=== PATIENT | male | born 1985 | race Caucasian/White ===

== ENCOUNTER 2017-05-07 20:39 | Emergency (ER) | payer MEDICAID, OTHER ==
[~2017-05-07] VITALS: Ht 175.3 cm; Wt 78.9 kg
[2017-05-07 20:54] VITALS: Ht 175.3 cm; Wt 78.9 kg
[2017-05-07] MEDS ORDERED: KETOROLAC 60 MG INJ IM STA (22:42)
--- NOTE | 2017-05-07 23:05 | RADRPT ---
PROCEDURE: Ultrasound soft tissue CLINICAL INDICATION: Right suprapubic/groin rule out hernia TECHNIQUE: Ultrasound of the right groin region was performed. COMPARISON: None available FINDINGS: No right inguinal region hernia is seen. No mass or fluid collection is seen. No lymph node is seen. IMPRESSION: No sonographic evidence of right inguinal region hernia seen. RPTAT: HJES .Johnson Hubbard MD, MD Date Time Electronically viewed and signed by .Johnson Hubbard MD, on 05/07/2017 23:04 .S/
--- NOTE | 2017-05-07 23:44 | ERD ---
ER Documentation Chief Complaint Chief Complaint Rt groin pain x2 wks, worse today. HPI 32-year-old male, previously healthy, presents to the emergency department complaining of progressive right groin pain for approximately 2 weeks. The pain is intermittent, sharp, 7/10 worse by deep palpation the patient has not tried any medications at this time. Denies any recent trauma. Denies urinary symptoms, no abdominal pain, no fever, no chills, no diarrhea, no vomiting. ROS SYSTEMIC symptoms: no fever, chills, no night sweats, no weight loss EYE symptoms: No blurred vision, no eye discharge OTOLARYNGEAL symptoms: No hearing loss. No ear pain, no sore throat CARDIOVASCULAR symptoms: No chest pain or discomfort, no palpitations. PULMONARY symptoms: No dyspnea, no cough, no wheezing. GASTROINTESTINAL symptoms: No abdominal pain, no nausea, no vomiting, no diarrhea MUSCULOSKELETAL symptoms: No arthralgias, no muscle aches. NEUROLOGY symptoms: No confusion, no syncope, no numbness or tingling. SKIN: No rashes Medications Home Meds Active Scripts Ibuprofen* (Motrin*) 400 Mg Tab, 400 MG PO Q8, #30 TAB Prov:LINDEN TAVERAS MD 05/07/17 Hydrocodone/Acetaminophen ([place] 5-325 Tablet) 1 Each Tablet, 1 TAB PO Q6H Y for PAIN, #12 TAB Prov:LINDEN TAVERAS MD 05/07/17 Allergies Allergies: Coded Allergies: No Known Allergy (Unverified , 05/07/17) PMhx/Soc Medical and Surgical Hx: pt denies Medical Hx, pt denies Surgical Hx Hx Alcohol Use: Yes Hx Substance Use: No Hx Tobacco Use: Yes Smoking Status: Current some day smoker Physical Exam Vitals Vital Signs Date Time Temp Pulse Resp B/P Pulse Ox O2 Delivery O2 Flow Rate FiO2 05/07/17 20:54 97.8 71 18 126/88 99 Physical Exam Patient is in no acute distress, vital signs stable. Alert and fully oriented. EYES: PERRLA, EOMI, Sclera and conjunctiva appear normal. EARS: Canals clear, tympanic membranes WNL THROAT: Normal oropharynx. NECK: Supple, No lymphadenopathy. Full ROM without pain or tenderness. HEART: RRR, no rubs, murmurs, clicks or gallops. LUNGS: Clear to auscultation. ABDOMEN: Soft, non-tender without masses or hepatosplenomegaly. No palpable hernia. EXTREMITIES: No edema bilaterally. BACK: Full ROM, no deformity, normal back exam NEURO: Cranial nerves grossly intact, no motor or sensory deficit Results 24 hrs Laboratory Tests Test 05/07/17 23:48 Bedside Urine pH (LAB) 6.0 Bedside Urine Protein (LAB) Negative Bedside Urine Glucose (UA) Negative Bedside Urine Ketones (LAB) Negative Bedside Urine Blood Negative Bedside Urine Nitrite (LAB) Negative Bedside Urine Leukocyte Esterase (L Negative Current Medications Medications (Trade) Dose Ordered Sig/Bryan Route PRN Reason Start Time Stop Time Status Last Admin Dose Admin Ketorolac Tromethamine (Toradol) 60 mg ONCE STAT IM 05/07/17 22:42 05/07/17 22:45 DC 05/07/17 23:08 [place] [id number] Radiology Main Line: [phone] DIAGNOSTIC IMAGING REPORT Patient: PRUDENCE CORDERO : 1985 Age: 32 Sex: M MR #: [id number] DOS: 05/07/17 2242 Ordering MD: LINDEN TAVERAS MD Location: [facility] Room/Bed: PROCEDURE: Ultrasound soft tissue CLINICAL INDICATION: Right suprapubic/groin rule out hernia TECHNIQUE: Ultrasound of the right groin region was performed. COMPARISON: None available FINDINGS: No right inguinal region hernia is seen. No mass or fluid collection is seen. No lymph node is seen. IMPRESSION: No sonographic evidence of right inguinal region hernia seen. RPTAT: HJES .Johnson Hubbard MD, MD Date Time Electronically viewed and signed by .Johnson Hubbard MD, MD on 05/07/2017 23:04 .S/ CC: LINDEN TAVERAS MD Procedures/MDM 32-year-old male, previously healthy, presents complaining of 2 weeks with progressive right groin pain. Vital signs stable, Physical exam unremarkable, abdomen soft, nontender, no peritoneal signs. Differential diagnosis include but not limited to: Hernia, acute scrotum, appendicitis, musculoskeletal injury , UTI. Pertinent Data: UA: No signs of infection. Physical examination and clinical presentation consistent most likely with musculoskeletal injury. During the ED course the patient remained stable, no new complaints. The patient received treatment with Toradol IM presenting overall improvement of the symptoms. Results and clinical impression discussed with patient who agrees with management. The patient is stable to be treated outpatient and will be discharged home with a Rx for ibuprofen and [place], some side effects of prescribed medications (headache, rash, nausea, vomiting, diarrhea, drowsiness, habituation, bleeding, hypertension, interactions with other medications) were reviewed. The patient was instructed to follow up with the primary care provider in the next 48h. If symptoms persist, worsen or new symptoms develop, then patient should return to the ED immediately. Instructions explained and given directly by me to the patient in Nepali with acknowledgment and demonstrated understanding. Disclaimer: Inadvertent spelling and grammatical errors are likely due to EHR/ dictation software use and do not reflect on the overall quality of patient care. Also, please note that the electronic time recorded on this note does not necessarily reflect the actual time of the patient encounter. Departure Diagnosis: Primary Impression: Groin pain, lower right quadrant Condition: Stable Additional Instructions: Call your primary care doctor TOMORROW for an appointment during the next 1-2 days. See the doctor sooner or return here if your condition worsens before your appointment time. Thank you very much for allowing us to participate in your care. Your health and safety is our top priority at [facility]. Have prescriptions filled and follow precisely the directions on the label. Follow-up with primary care provider during the next 4 days and bring all the information and medications prescribed. If illness has not improved in 2 days, then make an appointment with primary care provider. If the provider is unavailable, return to the Emergency Department immediately. LINDEN TAVERAS MD May 07, 2017 23:44
[2017-05-07 23:48] LABS: URINE BLOOD (Dip) POC Negative (NEGATIVE)
[2017-05-07] MEDS ORDERED: HYDR-906 PO (23:54)
[2017-05-07] MEDS ORDERED: IBUP400T22 PO (23:54)
[2017-05-08 00:07] VITALS: BP 116/81; PULSE 61; RESP 16; TEMP 97.9
== END 2017-05-08 00:09 | disposition home or self-care (01) ==
LOC: FTE 20:39
DX: R10.31 Right lower quadrant pain (principal); F17.210 Nicotine dependence, cigarettes, uncomplicated
CPT/HCPCS: 76536; 81003; 96372; J1885; Z7502